=== PATIENT | male | born 1940 | race Caucasian/White ===

== ENCOUNTER 2019-11-17 15:38 | Outpatient (CLI) | payer BC ==
[~2019-11-17] VITALS: Ht 180.3 cm; Wt 79.4 kg
[2019-11-17 16:11] LABS: TOTAL HEMOGLOBIN 14.5 G/dl (14.0-17.9)
[2019-11-17] MEDS ORDERED: albuterol 2.5 MG/3 ML nebule NEB ONE (16:25)
== END 2019-11-17 23:59 | disposition home or self-care (01) ==
LOC: RT 15:38
PROVIDERS: ATTEND Internal Medicine
DX: J44.9 Chronic obstructive pulmonary disease, unspecified (principal); R91.8 Other nonspecific abnormal finding of lung field
CPT/HCPCS: 85018; 94060; 94727; 94729; 94760

== ENCOUNTER 2020-12-13 05:03 | Outpatient (CLI) | payer BC | END 2020-12-13 23:59 | disposition home or self-care (01) | LOC: RT 05:03 | PROVIDERS: ATTEND Internal Medicine Pulmonary Disease | DX: J44.9 Chronic obstructive pulmonary disease, unspecified (principal) | CPT/HCPCS: 94618 ==

== ENCOUNTER 2022-07-12 09:57 | Outpatient (CLI) | payer BC ==
[~2022-07-12] VITALS: Ht 180.3 cm; Wt 74.8 kg
[2022-07-12] MEDS ORDERED: albuterol 2.5 MG/3 ML nebule NEB ONE (10:40)
== END 2022-07-12 23:59 | disposition home or self-care (01) ==
LOC: RT 09:57
PROVIDERS: ATTEND Internal Medicine Pulmonary Disease
DX: J44.9 Chronic obstructive pulmonary disease, unspecified (principal); J84.10 Pulmonary fibrosis, unspecified
CPT/HCPCS: 94060; 94727; 94729; 94760

== ENCOUNTER 2023-05-03 18:56 | Emergency (ER) | payer BC ==
[~2023-05-03] VITALS: Ht 177.8 cm; Wt 67.2 kg
[2023-05-03 19:13] VITALS: BP 130/70; PULSE 70; RESP 18; TEMP 97.7; O2SAT 92
[2023-05-03 19:51] LABS: BILIRUBIN,URINE NEGATIVE (Neg); CLARITY,URINE TURBID (Clear); COLOR,URINE RED (Yellow); GLUCOSE, URINE NEGATIVE (Neg); KETONES,URINE TRACE mg/dl (Neg); LEUKOCYTE ESTERASE ,URINE SMALL (Neg); NITRITES, URINE POSITIVE (Neg); OCCULT BLOOD,URINE LARGE (Neg); PROTEIN,URINE 100 mg/dl (Neg)
[2023-05-03 20:00] LABS: UA COLLECTION TYPE CLN CATCH MIDSTREAM
[2023-05-03 20:03] LABS: MUCUS STRANDS MODERATE /LPF (Neg); SQUAMOUS EPITHELIAL CELL,UR NONE SEEN /LPF (FEW)
[2023-05-03 20:05] LABS: BACTERIA,URINE 3+ /HPF (Neg); RBC,URINE TNTC /HPF (0-2)
[2023-05-03] MEDS ORDERED: CEFD300C3 PO (21:02)
[2023-05-03] MEDS ORDERED: CefTRIAXone 1000mg IM Kit (w/lidocaine diluent) IM ONE (21:30)
--- NOTE | 2023-05-03 21:45 | NUR ---
SPOKE WITH DR. KIMBLE REGARDING AN ANTIBOTIC, PHARMACY IS CLOSED. PLEASE SEE NEW ORDERS.
== END 2023-05-03 21:49 | disposition home or self-care (01) ==
LOC: ER 18:57
DX: N39.0 Urinary tract infection, site not specified (principal); R31.9 Hematuria, unspecified
CPT/HCPCS: 81001; 87088; 96372; 99283; J0696

== ENCOUNTER 2025-01-10 08:33 | Emergency (ER) | payer BC ==
[~2025-01-10] VITALS: Ht 177.8 cm; Wt 60.0 kg
--- NOTE | 2025-01-10 09:05 | Physician Documentation ---
History of Present Illness ~ Chief Complaint: Mechanical Fall Stated Complaint: FALL Time Seen by MD: 08:50 HPI 84-year-old male presents to the ED after falling yesterday injuring his left knee and right ankle. States most of this pain has in his right ankle. He feels like he rolled it but denies any head strikes or blood thinners Tetanus within 5 Years?: No Medication Reconciliation Allergies: Coded Allergies: No Known Allergies (Unverified , 11/17/19) Review of Systems All Other Systems at this time: Reviewed and Negative Physical Exam Vital Signs: Temperature: 98.1, Source: Temporal, Heart Rate: 67, Respiratory Rate: 15, BP: 141/71, Pulse Oximetry: 96, Weight: 60.000 Physical Exam General: Alert, no apparent distress. HEENT: PERRL, EOMI, no injection, moist mucous membranes. Extremities: . right ankle swollen lateral aspect, left knee negative for Angelita's drawer test and Eleni's test Neurologic: Oriented x4. Psychiatric: Normal mood and affect. Skin: Normal color, warm and dry. No edema, no ecchymosis. Progress Results/Orders Results/Orders Orders - DARREN NIX RAIL SIGNAL WORKER Ortho Orders (01/10/25 ) Vital Signs 01/10/25 01/10/25 01/10/25 01/10/25 08:34 09:01 09:12 10:24 Temp 98.1 98.1 Pulse 70 67 71 Resp 15 15 15 16 B/P (MAP) 135/61 141/71 (94) 136/61 Pulse Ox 93 96 95 Departure Disposition: HOME / SELF CARE / HOMELESS Impression: Primary Impression: Fall Condition: Stable Discharge Instructions: Fall Prevention in the Home, Adult, [id number] Referrals: NO PRIMARY CARE PROVIDER (PCP) Signature Scribe Signature: fg Attestation: Scribed for Darren Nix Clam Bed Laborer by Darren Khan NP . 01/10/25 09:05 DARREN NIX NP Jan 10, 2025 09:05
--- NOTE | 2025-01-10 09:33 | RADIOLOGY REPORT ---
EXAM: DI KNEE, COMP 4 VW MIN CLINICAL INDICATION: KNEE PAIN TECHNIQUE: DI KNEE, COMP 4 VW MIN Comparison: None FINDINGS/IMPRESSION: There is no evidence of acute fracture or dislocation. Moderate left knee osteoarthritis. The alignment is anatomical. There is no radiopaque foreign body.
--- NOTE | 2025-01-10 09:35 | RADIOLOGY REPORT ---
EXAM: DI ANKLE, COMPLETE(3VW MIN) CLINICAL INDICATION: ANKLE PAIN TECHNIQUE: DI ANKLE, COMPLETE(3VW MIN) Comparison: None FINDINGS/IMPRESSION: There is no evidence of acute fracture or dislocation. The visualized joint space is well maintained. The alignment is anatomical. There is no radiopaque foreign body.
[2025-01-10 10:24] VITALS: BP 136/61; PULSE 71; RESP 16; TEMP 98.1; O2SAT 95
== END 2025-01-10 10:27 | disposition home or self-care (01) ==
LOC: ER 08:33
DX: M25.571 Pain in right ankle and joints of right foot (principal); M25.562 Pain in left knee; W19.XXXA Unspecified fall, initial encounter; Y93.89 Activity, other specified; Y92.89 Other specified places as the place of occurrence of the external cause; Y99.8 Other external cause status
CPT/HCPCS: 29540; 73564; 73610; 99284; L1930

== ENCOUNTER 2025-05-13 00:03 | Emergency (ER) | payer BC ==
[~2025-05-13] VITALS: Ht 177.8 cm; Wt 53.7 kg
--- NOTE | 2025-05-13 02:24 | Physician Documentation ---
History of Present Illness ~ Chief Complaint: Catheter Problem Stated Complaint: BLOOD IN URINE M BLS Time Seen by MD: 02:06 Primary Medical Doctor: [facility]A Mode of Arrival: EMS HPI Patient presents to the emergency room for evaluation of hematuria. He has been treated for urinary tract infection. Patient's urine is orange. Patient endorses dysuria however he has Urias catheter in place. Medication Reconciliation Allergies: Coded Allergies: No Known Allergies (Unverified , 11/17/19) Review of Systems ROS All review of systems negative except as per HPI Physical Exam Vital Signs: Temperature: 97.5, Source: Oral, Heart Rate: 102, Respiratory Rate: 16, BP: 112/62, Pulse Oximetry: 100, Weight: 53.700 Oxygen Flow Rate: 3.0 Physical Exam General: Patient is awake, alert, oriented x4 in no acute distress Head: Normocephalic and atraumatic. Eyes: Conjunctival normal. EOMI. PERRL. ENT: Mucous membranes moist. Neck: Supple, trachea is midline. Chest: Clear to auscultation bilaterally without rales, rhonchi, or wheezes. There is no accessory muscle use or retractions. Cardiac: RRR without murmurs, gallops, or rubs. Abd: Soft, nondistended, nontender, with normoactive bowel sounds. No guarding, rebound, or rigidity. Urias in place with a orange urine Progress Results/Orders Results/Orders Orders - FRANCISCO GRAY MD Cult Urine + [address] (05/13/25 03:04) Completed Orders - FRANCISCO GRAY MD Cbc/Diff (05/13/25 02:06) BMP (05/13/25 02:06) Ua W/Microscopic, Cult If Ind (05/13/25 02:15) Vital Signs 05/13/25 05/13/25 00:07 00:25 Temp 97.5 Pulse 102 Resp 15 16 B/P (MAP) 112/62 Pulse Ox 100 O2 Flow Rate 3.0 Laboratory Tests Test 05/13/25 02:15 05/13/25 02:47 05/13/25 03:05 Urine Specimen Description Urias cath Urine Color [place] Urine Clarity Cloudy Urine pH Urine Specific [place] Urine Protein Urine Glucose (UA) Urine Ketones Urine Occult Blood Urine Nitrite Urine Bilirubin Urine Urobilinogen Urine Leukocyte Esterase Urine RBC 3-10 Urine WBC 10-20 H Urine Squamous Epithelial Cells Few Urine Bacteria 2+ Urine Mucus None seen Urine Culture Indicated Indicated Volume Urine Centrifuged 10 ml Urine Comment See note Sodium Level 138 Potassium Level 3.4 L Chloride Level 101 Carbon Dioxide Level 32.4 H Anion Gap 5 L Blood Urea Nitrogen 14 Creatinine 0.88 Estimated GFR/1.73 m2 82 BUN/Creatinine Ratio 15.9 Glucose Level 90 Calcium Level 8.9 Albumin 2.9 L Chemistry Comments White Blood Count 13.2 H Red Blood Count 3.95 L Hemoglobin 12.8 L Hematocrit 38.0 L Mean Corpuscular Volume 96.3 Mean Corpuscular Hemoglobin 32.4 H Mean Corpuscular Hemoglobin Concent 33.6 Red Cell Distribution Width 14.9 H Platelet Count 300 Mean Platelet Volume 7.7 Neutrophils (%) (Auto) 76.6 H Lymphocytes (%) (Auto) 10.8 L Monocytes (%) (Auto) 8.6 Eosinophils (%) (Auto) 3.2 Basophils (%) (Auto) 0.8 Neutrophils # (Auto) 10.1 H Lymphocytes # (Auto) 1.4 Monocytes # (Auto) 1.1 H Eosinophils # (Auto) 0.4 Basophils # (Auto) 0.1 CBC Comment Medical Decision Making Additional information obtaine: old records Findings Patient presents to the emergency room with orange urine. Differentials include but are not limited to hematuria, bladder cancer, medication side effect, anemia, kidney injury therefore emergent labs indicated. Labs reassuring. Urinalysis is negative for significant amount of blood. Patient's medical list shows no Pyridium but I strongly suspect he has received some. I do not feel CT scan is necessary. Urinary Diff Dx:Considerations: Include: AAA, Aortic dissection, Appendicitis, Appendicitis train, Bowel obstruction, Bladder outlet obstruc., Cholelithiasis, Choleangitis, Cholecystitis, DJD, Epididymitis, Hepatitis, HNP, Impaction, Musculoskeletal pain, Pancreatitis, Postoperative Comp., Prostatitis, Pyelonephritis, Renal failure, Renal infarction, Strain, Urolithiasis, Urinary Obstruction, Urethritis, Urinary retention, UTI, Other Genital Diff Dx:Considerations: Include: Abscess, Balanitis, Balanoposthitis, Cellulitis, Epididymitis, Entrapment injury, Rizwana's gangrene, Foreign body, Facture penis, Hydrocele, Inguinal hernia, Post-op Complication, Paraphimosis, Prostatitis, Priapism, Syphilis, Testicular torsion, Torsion-epididymis, Torsio n-appendiceal, Urinary retention, Urethritis, Urethritis-chlamydial, Urethritis- gonococcal, UTI, Other Departure Disposition: HOME / SELF CARE / HOMELESS Impression: Primary Impression: UTI (urinary tract infection) Condition: Stable Discharge Instructions: Indwelling Urinary Catheter Care, Adult Additional Instructions: I suspect your urine is orange because of medication reaction likely from Pyridium. I believe your pain is from the catheter irritating your bladder. There were medications available for this and inquire about these medications. Kidney function is reassuring Referrals: NO PRIMARY CARE PROVIDER (PCP) Signature Scribe Signature: No scribe Attestation: The note accurately reflects work and decisions made by me.Francisco Gray MD 05/13/25 03:11 FRANCISCO GRAY MD May 13, 2025 02:24
[2025-05-13 02:53] LABS: UA COLLECTION TYPE FOLEY CATH
[2025-05-13 03:04] LABS: MUCUS STRANDS NONE SEEN /LPF (Neg); SQUAMOUS EPITHELIAL CELL,UR FEW /LPF (FEW)
[2025-05-13 03:06] LABS: CREATININE 0.88 MG/DL (0.60-1.10); TOTAL CARBON DIOXIDE 32.4 MMOL/L (24-32); eCRCL 46 ML/MIN; eGFR 82 ML/MIN
[2025-05-13 03:23] LABS: MEAN PLATELET VOLUME 7.7 FL (7.4-10.4); RED CELL DISTRIBUTION WIDTH 14.9 % (11.5-14.5)
[2025-05-13 04:26] VITALS: BP 118/70; PULSE 68; RESP 18; TEMP 97.5; O2SAT 100
[2025-05-16] MEDS ORDERED: CIPR-458 PO (07:20)
[2025-05-18] MEDS ORDERED: AMOX-117 PO (07:18)
== END 2025-05-13 04:29 | disposition home or self-care (01) ==
LOC: ER 00:04
DX: N39.0 Urinary tract infection, site not specified (principal)
CPT/HCPCS: 36415; 80048; 81001; 85025; 87077; 87088; 87186; 99284